=== PATIENT | male | born 1960 | race Caucasian/White ===

== ENCOUNTER 2024-03-30 19:18 | Emergency (ER) | payer OTHER ==
[~2024-03-30] VITALS: Ht 188 cm; Wt 93.0 kg
[2024-03-30 19:22] VITALS: BP_SYST 153; PULSE 105; RESP 20; TEMP 99.4; O2SAT 97
[2024-03-30] MEDS: KETOROLAC TROMETHAMINE 60 MG/2 ML VIAL IM ONE (20:37)
[2024-03-30] MEDS: HYDROcodone/ACETAMIN 10-325 MG TAB PO ONE (20:37)
[2024-03-30] MEDS ORDERED: NAPR-690 PO (20:53)
[2024-03-30 22:16] VITALS: BP_SYST 153; PULSE 105; RESP 20; TEMP 99.4; O2SAT 97
== END 2024-03-30 22:16 | disposition home or self-care (01) ==
LOC: SED 19:18
DX: G89.29 Other chronic pain (principal); M25.552 Pain in left hip; M25.561 Pain in right knee; F15.90 Other stimulant use, unspecified, uncomplicated; Z88.5 Allergy status to narcotic agent; Z79.899 Other long term (current) drug therapy
CPT/HCPCS: 99284; 72170; 73502; 73560; 96372; 82948; J1885